=== PATIENT | male | born 1940 | race Caucasian/White ===

== ENCOUNTER 2025-09-11 01:13 | Emergency (ER) | payer MEDICARE, OTHER ==
[~2025-09-11 01:13] MED LIST: CELEXA20 MG PO; ELIQUIS5 M1 PO; FINASTERIDE1 MG PO; METOPROLOL SUCC25 M2 PO; MOTRIN800 MG PO; PROSTATE MED; TAMSULOSIN HCL0.4 MG PO
[2025-09-11] MEDS ORDERED: DIPHENHYDRAMINE50 M1 IM (01:32)
[2025-09-11] MEDS ORDERED: VISTARIL25 MG PO (01:33)
[2025-09-11] MEDS ORDERED: LORazepam 1 MG TAB PO ONE (01:40)
[2025-09-11 01:48] LABS: BILIRUBIN 1+ (Negative); BLOOD 2+ (Negative); CLARITY Turbid (Clear); COLOR Red (Yellow); KETONE Negative (Negative); LEUKO ESTERASE 2+ (Negative); NITRITE Negative (Negative); PH 5.0 (4.5-8.0); SPECIFIC GRAVITY 1.025 (1.001-1.030); UROBILINOGEN 1.0 E.U./dl (0.0-1.0)
[2025-09-11 01:56] LABS: BASO # 0.0 10*3/uL (0.0-0.1); BASO % 0.4 % (0.0-1.0); EOS # 0.3 10*3/uL (0.0-0.4); EOS % 3.2 % (1.0-4.0); MEAN CELL VOLUME 92.5 fl (80.0-94.0); MEAN CORPUSCULAR HGB 29.7 pg (27.0-31.0); MEAN PLATELET VOLUME 10.5 fl (9.6-12.3); MONO # 0.9 10*3/uL (0.1-1.0); MONO % 9.4 % (3.0-9.0); NEUT # 7.2 10*3/uL (2.3-7.9); NEUT % 75.9 % (47.0-73.0); NUCLEATED RED BLOOD CELL 0.0 % (0.0-0.0); NUCLEATED RED BLOOD CELL 0.0 10*3/uL (0.0-0.0); PLATELET COUNT AUTOMATED 176 10*3/uL (130-400); RED CELL DISTRI WIDTH 11.9 % (0-14.5)
[2025-09-11 02:15] LABS: BUN 22 mg/dl (9-23)
[2025-09-11 02:18] LABS: RBC TNTC rbc/hpf (0-2); WBC 16-20 wbc/hpf (0-5)
[2025-09-11 02:19] LABS: BACTERIA TRACE
[2025-09-11] MEDS ORDERED: ATIVAN1 MG PO (02:36)
[2025-09-11] MEDS ORDERED: CEPHALEXIN500 M1 PO (02:36)
== END 2025-09-11 03:07 ==
LOC: ED 01:13
PROVIDERS: Emergency Medicine
DX: F03.90 Unspecified dementia, unspecified severity, without behavioral disturbance, psychotic disturbance, mood disturbance, and anxiety (principal); N39.0 Urinary tract infection, site not specified; R31.9 Hematuria, unspecified; Z79.899 Other long term (current) drug therapy; Z46.82 Encounter for fitting and adjustment of non-vascular catheter

== ENCOUNTER 2025-09-15 11:25 | Inpatient (IN) | payer MEDICARE, OTHER ==
[~2025-09-15] VITALS: Ht 177.8 cm; Wt 90.5 kg
[~2025-09-15 11:25] MED LIST changes: +ATIVAN1 MG PO; +CEFADROXIL500 M1 PO; +CEPHALEXIN500 M1 PO; +DIPHENHYDRAMINE50 M1 IM; +VISTARIL25 MG PO
[2025-09-15 11:47] VITALS: BP 160/90
[2025-09-15] MEDS ORDERED: NAMENDA-5 PO (11:49)
[2025-09-15] MEDS ORDERED: EXELON1 EACH T (11:50)
[2025-09-15] MEDS ORDERED: Water, Sterile 10 ML VIAL IM PRN (11:55)
[2025-09-15] MEDS ORDERED: LORazepam 1 MG TAB PO PRN (11:55)
[2025-09-15] MEDS ORDERED: hydrOXYzine hydrochloride 50 MG/ML VIAL IM PRN (11:55)
[2025-09-15] MEDS ORDERED: ACETAMINOPHEN 325 MG TAB PO PRN (12:00)
[2025-09-15] MEDS ORDERED: MG-AL HYDROXIDE/SIMETICONE 30 ML UDC PO PRN (12:00)
[2025-09-15] MEDS ORDERED: Menthol/Zinc Oxide 4 GM THIN T PRN (12:05)
[2025-09-15 20:00] VITALS: BP 101/70
[2025-09-15] MEDS ORDERED: Memantine Hydrochloride 5 MG TAB PO SCH (21:00)
[2025-09-15] MEDS ORDERED: APIXABAN 5 MG TAB PO SCH (22:00)
[2025-09-15] MEDS ORDERED: NYSTATIN 15 GM BOT T SCH (22:00)
[2025-09-16 06:21] LABS: BASO # 0.1 10*3/uL (0.0-0.1); BASO % 0.5 % (0.0-1.0); EOS # 0.5 10*3/uL (0.0-0.4); EOS % 4.4 % (1.0-4.0); MEAN CELL VOLUME 92.3 fl (80.0-94.0); MEAN CORPUSCULAR HGB 30.5 pg (27.0-31.0); MEAN PLATELET VOLUME 11.1 fl (9.6-12.3); MONO # 1.0 10*3/uL (0.1-1.0); MONO % 9.5 % (3.0-9.0); NEUT # 8.5 10*3/uL (2.3-7.9); NEUT % 77.0 % (47.0-73.0); NUCLEATED RED BLOOD CELL 0.0 % (0.0-0.0); NUCLEATED RED BLOOD CELL 0.0 10*3/uL (0.0-0.0); PLATELET COUNT AUTOMATED 206 10*3/uL (130-400); RED CELL DISTRI WIDTH 11.9 % (0-14.5)
[2025-09-16 07:07] LABS: BUN 18 mg/dl (9-23); LDL CHOLESTEROL 101 mg/dL (9-159); SGPT/ALT 40 U/L (5-49)
[2025-09-16 07:13] LABS: VITAMIN D, 25-HYDROXY 20.7 ng/mL (30-100)
[2025-09-16 08:13] VITALS: BP 149/85
[2025-09-16] MEDS ORDERED: Rivastigmine Tartrate 9.5 MG/24 HR PATCH T SCH (09:00)
[2025-09-16] MEDS ORDERED: Cholecalciferol 5,000 IU CAP (125 MCG) PO SCH (09:00)
[2025-09-16] MEDS ORDERED: Memantine Hydrochloride 5 MG TAB PO SCH (09:00)
[2025-09-16] MEDS ORDERED: METOPROLOL SUCCINATE XR 25 MG TAB PO SCH (09:00)
[2025-09-16] MEDS ORDERED: CITALOPRAM 20 MG TAB PO SCH ×2 (09:00)
[2025-09-16 20:00] VITALS: BP 127/85
[2025-09-17 08:00] VITALS: BP 152/76
[2025-09-17 17:36] LABS: BILIRUBIN Negative (Negative); BLOOD 1+ (Negative); CLARITY Clear (Clear); COLOR Yellow (Yellow); KETONE Negative (Negative); LEUKO ESTERASE Trace (Negative); NITRITE Negative (Negative); PH 5.5 (4.5-8.0); SPECIFIC GRAVITY >= 1.030 (1.001-1.030); UROBILINOGEN 0.2 E.U./dl (0.0-1.0)
[2025-09-17 18:15] LABS: BACTERIA 1+; MUCOUS 2+
[2025-09-17 20:00] VITALS: BP 127/88
[2025-09-17] MEDS ORDERED: Mirtazapine 15 MG TAB PO SCH (21:00)
[2025-09-17] MEDS ORDERED: Sulfamethoxazole/Trimethopri 1 TAB TAB PO SCH (21:00)
[2025-09-18 06:13] LABS: BASO # 0.1 10*3/uL (0.0-0.1); BASO % 0.7 % (0.0-1.0); EOS # 0.5 10*3/uL (0.0-0.4); EOS % 5.6 % (1.0-4.0); MEAN CELL VOLUME 94.5 fl (80.0-94.0); MEAN CORPUSCULAR HGB 29.4 pg (27.0-31.0); MEAN PLATELET VOLUME 11.2 fl (9.6-12.3); MONO # 0.8 10*3/uL (0.1-1.0); MONO % 9.9 % (3.0-9.0); NEUT # 5.6 10*3/uL (2.3-7.9); NEUT % 68.4 % (47.0-73.0); NUCLEATED RED BLOOD CELL 0.0 % (0.0-0.0); NUCLEATED RED BLOOD CELL 0.0 10*3/uL (0.0-0.0); PLATELET COUNT AUTOMATED 171 10*3/uL (130-400); RED CELL DISTRI WIDTH 11.8 % (0-14.5)
[2025-09-18 07:00] LABS: BUN 12 mg/dl (9-23)
[2025-09-18 08:00] VITALS: BP 145/85
[2025-09-18 20:00] VITALS: BP 131/100
[2025-09-19 20:00] VITALS: BP 145/83
[2025-09-20 08:24] VITALS: BP 107/75
[2025-09-20] MEDS ORDERED: DIVALPROEX (DR) 250 MG TAB PO SCH (13:00)
[2025-09-20 20:00] VITALS: BP 143/90
[2025-09-21 08:00] VITALS: BP 121/82
[2025-09-21] MEDS ORDERED: RIVASTIGMINE 13.3 MG/24 HR TDM T SCH (09:00)
[2025-09-22 10:00] VITALS: BP 123/83
[2025-09-22 20:00] VITALS: BP 94/57
[2025-09-23 06:12] LABS: BUN 11 mg/dl (9-23); SGPT/ALT 39 U/L (5-49); VALPROIC ACID (DEPAKENE) 39.6 ug/ml (50-100)
[2025-09-23 06:40] LABS: BASO # 0.1 10*3/uL (0.0-0.1); BASO % 0.8 % (0.0-1.0); EOS # 0.4 10*3/uL (0.0-0.4); EOS % 3.9 % (1.0-4.0); MEAN CELL VOLUME 93.9 fl (80.0-94.0); MEAN CORPUSCULAR HGB 29.8 pg (27.0-31.0); MEAN PLATELET VOLUME 12.0 fl (9.6-12.3); MONO # 0.7 10*3/uL (0.1-1.0); MONO % 7.7 % (3.0-9.0); NEUT # 6.2 10*3/uL (2.3-7.9); NEUT % 68.9 % (47.0-73.0); NUCLEATED RED BLOOD CELL 0.0 % (0.0-0.0); NUCLEATED RED BLOOD CELL 0.0 10*3/uL (0.0-0.0); PLATELET COUNT AUTOMATED 187 10*3/uL (130-400); RED CELL DISTRI WIDTH 11.9 % (0-14.5)
[2025-09-23 08:00] VITALS: BP 90/57
[2025-09-23] MEDS ORDERED: DIVALPROEX (DR) 500 MG TAB PO SCH (13:00)
[2025-09-23 20:00] VITALS: BP 123/69
[2025-09-24 08:00] VITALS: BP 112/58
[2025-09-24 20:00] VITALS: BP 132/66
[2025-09-24 21:47] VITALS: BP 136/66
[2025-09-25 08:00] VITALS: BP 128/72
[2025-09-25 20:00] VITALS: BP 122/71
[2025-09-25] MEDS ORDERED: RAMELTEON 8 MG TAB PO SCH (21:00)
[2025-09-26 08:00] VITALS: BP 137/74
[2025-09-26 20:40] VITALS: BP 137/74
[2025-09-27] MEDS ORDERED: DIVALPROEX SOD500 MG PO (09:33)
[2025-09-27] MEDS ORDERED: MEMANTINE HCL10 MG PO (09:33)
[2025-09-27] MEDS ORDERED: RIVASTIGMINE1 EAC2 T (09:33)
[2025-09-27] MEDS ORDERED: VITAMIN D3125 MC1 PO (09:33)
[2025-09-27] MEDS ORDERED: RAMELTEON8 MG PO (09:33)
[2025-09-27] MEDS ORDERED: MIRTAZAPINE15 M2 PO (09:33)
[2025-09-27 09:35] VITALS: BP 137/74
== END 2025-09-27 11:51 | DRG 883 ==
LOC: 3N 11:25
PROVIDERS: Counselor Professional; Internal Medicine; ADMIT Psychiatry & Neurology Psychiatry; ATTEND Psychiatry & Neurology Psychiatry
PROC: GZHZZZZ Group Psychotherapy (ICD-10-PCS; principal; 2025-09-15)
PROC: GZ51ZZZ Individual Psychotherapy, Behavioral (ICD-10-PCS; 2025-09-15)
DX: F63.81 Intermittent explosive disorder (principal); F02.84 Dementia in other diseases classified elsewhere, unspecified severity, with anxiety; F02.83 Dementia in other diseases classified elsewhere, unspecified severity, with mood disturbance; G30.9 Alzheimer's disease, unspecified; I48.91 Unspecified atrial fibrillation; E55.9 Vitamin D deficiency, unspecified; N40.0 Benign prostatic hyperplasia without lower urinary tract symptoms; F32.9 Major depressive disorder, single episode, unspecified; Z66 Do not resuscitate; Z83.3 Family history of diabetes mellitus; Z82.3 Family history of stroke